=== PATIENT | female | born 1960 | race Two or more races ===

== ENCOUNTER 2022-11-27 23:00 | Emergency (ER) | payer OTHER ==
[~2022-11-27] VITALS: Ht 165.1 cm; Wt 86.2 kg
[~2022-11-27 23:00] MED LIST: GLIM4TAB37 PO; LIRAGLUTIDE IJ; METF-442 PO; SIMV-46 PO
[2022-11-28] MEDS ORDERED: ONDANSETRON 4 MG TAB.RAPDIS ONE (00:20)
[2022-11-28] MEDS ORDERED: MAG HYDROX/AL HYDROX/SIMETH 30 ML UDC ONE (00:20)
[2022-11-28] MEDS ORDERED: LIDOCAINE VISCOUS 2% UD 15 ML UDC ONE (00:20)
[2022-11-28 00:24] VITALS: BP 149/79
[2022-11-28] MEDS ORDERED: LIDOCAINE VISCOUS 2% UD 15 ML UDC MM ONE (00:30)
[2022-11-28] MEDS ORDERED: ONDANSETRON 4 MG TAB.RAPDIS SL ONE (00:30)
[2022-11-28] MEDS ORDERED: MAG HYDROX/AL HYDROX/SIMETH 30 ML UDC PO ONE (00:30)
== END 2022-11-28 01:20 | disposition home or self-care (01) ==
LOC: ER 23:08
DX: K21.9 Gastro-esophageal reflux disease without esophagitis (principal); E11.9 Type 2 diabetes mellitus without complications; E03.9 Hypothyroidism, unspecified; Z79.899 Other long term (current) drug therapy; Z60.2 Problems related to living alone; Z79.84 Long term (current) use of oral hypoglycemic drugs
CPT/HCPCS: 99283; 93005; Q0162

== ENCOUNTER 2022-11-29 09:05 | Emergency (ER) | payer OTHER ==
[~2022-11-29] VITALS: Ht 165.1 cm; Wt 90.7 kg
--- NOTE | 2022-11-29 09:24 | NUR ---
Urine sample obtained
[2022-11-29] MEDS ORDERED: ONDANSETRON HCL/PF - ER 4 MG/2 ML VIAL IV ONE (09:30)
[2022-11-29] MEDS ORDERED: MORPHINE SULFATE INJ 2 MG/ML DISP.SYRIN IV ONE ×2 (09:30→13:30)
[2022-11-29] MEDS ORDERED: IV NS 0.9% 1,000 ML IV ONE (09:30)
[2022-11-29 09:36] LABS: BASOPHILS % (AUTO) 0.4 % (0.0-2.0); EOSINOPHILS % (AUTO) 0.6 % (0.0-6.0); HEMATOCRIT 41 % (33-45); HEMOGLOBIN 13.5 g/dL (11.5-14.8); LYMPHOCYTES # (AUTO) 1.4 K/uL (0.8-4.8); LYMPHOCYTES % (AUTO) 13.5 % (20.0-44.0); MEAN CORPUSCULAR HGB CONC 33 g/dl (31.0-36.0); MEAN CORPUSCULAR VOLUME 98 fL (82-100); MONOCYTES # (AUTO) 0.7 K/uL (0.1-1.30); MONOCYTES % (AUTO) 6.9 % (2.0-12.0); NEUTROPHILS # (AUTO) 7.9 K/uL (1.8-8.9); NEUTROPHILS % (AUTO) 78.6 % (43.0-81.0); PLATELET COUNT (AUTO) 311 K/uL (150-450); RED BLOOD CELL COUNT(AUTO) 4.23 MIL/uL (4.0-5.2); WHITE BLOOD COUNT (AUTO) 10.1 K/uL (4.3-11.0)
[2022-11-29] MEDS ORDERED: ONDANSETRON HCL/PF 4 MG/2 ML VIAL ONE (09:41)
[2022-11-29 09:42] LABS: BILIRUBIN,URINE NEGATIVE (NEGATIVE); COLOR,URINE YELLOW (YELLOW); LEUKOCYTE ESTERASE ,URINE NEGATIVE (NEGATIVE); NITRITE, URINE NEGATIVE (NEGATIVE); PH,URINE 5.5 (5.0-8.0); PROTEIN,URINE NEGATIVE (NEGATIVE); UGLUCOSE 3+ mg/dL (NEGATIVE); UROBILINOGEN,URINE 0.2 EU/dL (0.2)
[2022-11-29] MEDS ORDERED: MORPHINE SULFATE INJ 4 MG/ML DISP.SYRIN ONE ×2 (09:42→14:38)
[2022-11-29 09:47] LABS: BACTERIA,URINE Rare /HPF (None Seen); SQUAMOUS EPITHELIAL CELL,UR Moderate /HPF (None Seen)
[2022-11-29 09:49] LABS: CALCIUM, SERUM 9.7 mg/dL (8.5-10.1); POTASSIUM 3.9 mmol/L (3.5-5.1)
[2022-11-29 09:55] LABS: ALBUMIN 3.8 g/dL (3.4-5.0); BILIRUBIN,DIRECT 0.2 mg/dL (0.0-0.2); BILIRUBIN,TOTAL 0.9 mg/dL (0.2-1.0); TOTAL PROTEIN, SERUM 8.1 g/dL (6.4-8.2)
[2022-11-29] MEDS ORDERED: KETOROLAC TROMETHAMINE INJ 30 MG/ML VIAL IV ONE (11:00)
[2022-11-29] MEDS ORDERED: KETOROLAC TROMETHAMINE INJ 30 MG/ML VIAL ONE (11:05)
--- NOTE | 2022-11-29 11:30 | NUR ---
covid swab taken
--- NOTE | 2022-11-29 11:35 | NUR ---
MOVE SHEET SUBMITTED.
--- NOTE | 2022-11-29 12:20 | NUR ---
dr. powell at [facility] side
[2022-11-29] MEDS ORDERED: VANCOMYCIN 1 GM in IV D5W 250 ML IV ONE (12:30)
[2022-11-29] MEDS ORDERED: CEFEPIME 1 GM in IV D5W 50 ML IV ONE (12:30)
--- NOTE | 2022-11-29 14:23 | NUR ---
[facility] - ROOM 301BST[facility] FOR REPORT [phone] [facility] TRANSFER - AUTH [id number] - PER JUSTINO ARMSTRONG @[phone]
--- NOTE | 2022-11-29 14:43 | NUR ---
[facility] CALLED FOR TRANSPORT ETA 90 MINS.
--- NOTE | 2022-11-29 15:52 | NUR ---
REPORT GIVEN TO STACIA WOOD. TRANSPORT [facility]UL[facility] AT BEDSIDE TO TRANSFER.
--- NOTE | 2022-11-29 16:09 | NUR ---
patient was picked up by transporter via stretcher .
[2022-11-29 16:11] VITALS: BP 135/81
== END 2022-11-29 16:12 | disposition short-term general hospital (02) ==
LOC: ER 09:08
DX: K80.00 Calculus of gallbladder with acute cholecystitis without obstruction (principal); Z20.822 Contact with and (suspected) exposure to COVID-19; E03.9 Hypothyroidism, unspecified; E11.9 Type 2 diabetes mellitus without complications; Z79.84 Long term (current) use of oral hypoglycemic drugs
CPT/HCPCS: 99291; 74176; 96365; 96375; 76705; 96367; 96361; 87426; 96376; 85025; 80048; 83605; 83690; 80076; 81001; 36415; 87081; 82962; 87040 ×2; J2270 ×2; J1885; J3370; J2405 ×2; J7060; J7030 ×2; J0692; C9803